=== PATIENT | female | born 1995 | race Hispanic/Latino ===

== ENCOUNTER → 2018-06-18 | Day surgery (SDC) | payer OTHER ==
[~2018-06-18] VITALS: Ht 157.5 cm; Wt 59.0 kg
[~2018-06-18] MED LIST: ORTHO TRI-CYCLE1 TA2 PO; TRAMADOL HCL50 M1 PO
--- NOTE | 2018-06-18 10:04 | Operative Report ---
Operative/Inv Procedure Report Surgery Date: 06/18/18 Name of Procedure: laser vaporization of the cervical transformation zone Pre-Operative Diagnosis: HAYDEN 2 Post-Operative Diagnosis: HAYDEN 2 Estimated Blood Loss: scant Surgeon/Assembly Line Inspector: Val GLEZ,Marco Jimenez Anesthesia: laryngeal mask airway Operative/Procedure Note Note: Time out was done with pt awake.After the induction of anesthesia the patient was placed in the dorsal supine position in high stirrups. The patient was draped in the usual sterile fashion and wet towel drapes were placed over the sterile drapes, appropriate eye protection was instituted. The CO2 laser was connected to the microscope cervix was prepped with Lugol's solution. The cervix was circumferentially infiltrated with 5 mL of Nesacaine with epinephrine. The transformation zone was vaporized to a depth of 6 mm. Hemostasis was achieved with Monsel solution. Patient was awakened and moved to recovery room in good condition
== END ==
LOC: STS 04:12
DX: N87.1 Moderate cervical dysplasia (principal); R87.810 Cervical high risk human papillomavirus (HPV) DNA test positive
CPT/HCPCS: 81025; J0131; J2250